=== PATIENT | female | born 1990 | race Two or more races ===

== ENCOUNTER 2020-12-05 16:19 | Emergency (ER) | payer OTHER ==
[2020-12-05 16:30] VITALS: TEMP 98.2; BMI 31.3
[2020-12-05] MEDS ORDERED: SODIUM CHLORIDE 0.9% 500 ML INFUS.BAG IV ONE (17:24)
[2020-12-05] MEDS ORDERED: KETOROLAC TROMETHAMINE 30 MG/1 ML VIAL IVPUSH ONE (17:24)
[2020-12-05] MEDS ORDERED: METOCLOPRAMIDE HCL INJECTION 10 MG/2 ML VIAL IVPUSH ONE (17:25)
[2020-12-05 17:52] LABS: BASO % 0.5 % (0-2.0); EOS % 1.2 % (0-4.5); HEMATOCRIT 35.5 % (32.4-45.2); LYMPH % 25.5 % (8-40); MCH 31.5 pg (25.7-33.7); MCHC 33.8 g/dl (32.0-36.0); MEAN CELL VOLUME 93.2 fl (80-96); MEAN PLT VOLUME 8.7 fl (7.5-11.1); MONO % 6.2 % (3.8-10.2); NEUT % 66.6 % (42.8-82.8); PLATELET COUNT 230 K/MM3 (134-434); RDW 13.1 % (11.6-15.6); WHITE BLOOD COUNT 4.6 K/mm3 (4.0-10.0)
[2020-12-05 18:14] LABS: CALCIUM 9.2 mg/dL (8.5-10.1)
[2020-12-05 18:15] LABS: ALBUMIN 3.1 g/dl (3.4-5.0); BLOOD UREA NITROGEN 9.6 mg/dL (7-18)
[2020-12-05 18:18] LABS: CREATININE 0.8 mg/dL (0.55-1.3)
[2020-12-05 18:19] LABS: BILIRUBIN,TOTAL 0.2 mg/dL (0.2-1); TOT PROT 6.8 g/dl (6.4-8.2)
[2020-12-05 19:53] VITALS: BP 118/76; PULSE 60
== END 2020-12-05 19:56 | disposition home or self-care (01) ==
LOC: JER 16:19
PROC: 3E0333Z Introduction of Anti-inflammatory into Peripheral Vein, Percutaneous Approach (ICD-10-PCS; principal; 2020-12-05)
PROC: 3E033GC Introduction of Other Therapeutic Substance into Peripheral Vein, Percutaneous Approach (ICD-10-PCS; 2020-12-05)
DX: G43.909 Migraine, unspecified, not intractable, without status migrainosus (principal)
CPT/HCPCS: 36415; 80053; 85025; 99284-25

== ENCOUNTER 2021-09-19 13:45 | Emergency (ER) | payer OTHER ==
[2021-09-19 14:06] VITALS: BP 122/60; PULSE 63; TEMP 98.6; BMI 33.8
[2021-09-19] MEDS ORDERED: LIDOCAINE 5% TOPICAL PATCH TP ONE (16:16)
[2021-09-19] MEDS ORDERED: KETOROLAC TROMETHAMINE 30 MG/1 ML VIAL IM ONE (16:16)
[2021-09-19] MEDS ORDERED: diazePAM 5 MG TABLET PO ONE (16:17)
[2021-09-19] MEDS ORDERED: LIDOCAINE 5% TOPICAL PATCH ONE (16:33)
[2021-09-19] MEDS ORDERED: KETOROLAC TROMETHAMINE 30 MG/1 ML VIAL ONE (16:34)
[2021-09-19] MEDS ORDERED: diazePAM 5 MG TABLET ONE (16:34)
[2021-09-19] MEDS ORDERED: LIDOCAINE PATCH REMOVAL MC SCH (22:00)
== END 2021-09-19 16:57 | disposition home or self-care (01) ==
LOC: JERFT 13:45
PROC: 3E0233Z Introduction of Anti-inflammatory into Muscle, Percutaneous Approach (ICD-10-PCS; principal; 2021-09-19)
DX: S30.0XXA Contusion of lower back and pelvis, initial encounter (principal); S89.91XA Unspecified injury of right lower leg, initial encounter; W00.0XXA Fall on same level due to ice and snow, initial encounter
CPT/HCPCS: 72100-TC-FY; 73562-TC-RT-FY; 99284-25